=== PATIENT | male | born 1985 | race Caucasian/White ===

== ENCOUNTER 2018-09-19 18:43 | Emergency (ER) | payer BC ==
[2018-09-19] MEDS ORDERED: HYDROmorphONE/DILAUDID 1 MG/ML INJ IVP ONE (19:20)
[2018-09-19] MEDS ORDERED: ONDANSETRON 4 MG/2 ML VIAL IVP ONE (19:20)
--- NOTE | 2018-09-19 19:20 | EDPHY ---
H & P Stated Complaint: Left chest versus tree skiing. Time Seen by Provider: 09/19/18 19:05 HPI/ROS: CHIEF COMPLAINT: Left-sided torso pain, snowboarding injury HISTORY OF PRESENT ILLNESS: 33-year-old male via private vehicle was snowboarding, regular stance, left side of body impacted a tree at relatively high speed. He is complaining of left-sided chest and abdominal pain as well as dyspnea. No head injury. No neck pain injury. No straddle or genital injury. No head injury. No midline C-spine pain. No peripheral paresthesia, weakness, numbness. No lower extremity injury. REVIEW OF SYSTEMS: 10 systems reviewed and negative with the exception of the elements mentioned in the history of present illness PAST MEDICAL/SURGICAL HISTORY: no anticoagulant use, no relevant medical/ surgical history SOCIAL HISTORY: denies alcohol use at time of incident PHYSICAL EXAM 1) GENERAL: Well-developed, well-nourished, alert and oriented. Appears uncomfortable Answering questions appropriately. 2) HEAD: Normocephalic, atraumatic 3) HEENT: Pupils equal, round, reactive to light bilaterally. Negative Horners. Nasopharynx, oropharynx, clear. No deformity or angulation of nose. No septal hematoma. No rhinorrhea. No oral trauma. Ears bilaterally with normal tympanic membranes. No hemotympanum. No fluid or blood in the external auditory canal. No raccoon eyes. No Trent sign. Teeth are normally aligned with no gross malocclusion, TMJ bilaterally nontender, facial bones nontender including the zygomatic arch, maxilla mandible. 4) NECK: No cervical collar is on. Posterior cervical spine is nontender, no stepoff, no effusion. Full range of motion which does not elicit any midline cervical spine pain, no posterior midline tenderness, no step-off. 5) LUNGS: Clear to auscultation bilaterally, no wheezes, no rhonchi, no retractions. No obvious signs of trauma. No chest wall pain. No flaring, no grunting. Moving symmetrically. No crepitus. 6) HEART: Regular rate and rhythm, 7) ABDOMEN: No guarding, no rebound, no focal tenderness, no peritoneal signs, no signs of trauma, no ecchymosis 8) MUSCULOSKELETAL: Moving all extremities, no focal areas of tenderness, no obvious trauma. 9) BACK:.No midline vertebral tenderness, no fluctuance, no step-off, no obvious trauma, no visual or palpable abnormality. 10) SKIN: No laceration. No abrasion DIFFERENTIAL DIAGNOSIS: In no particular order include but limited to splenic fracture, rib fracture, flail chest, pneumothorax, hemothorax - Personal History Current Tetanus/Diphtheria Vaccine: Unsure Current Tetanus Diphtheria and Acellular Pertussis (TDAP): Unsure - Medical/Surgical History Hx Asthma: No Hx Chronic Respiratory Disease: No Hx Diabetes: No Hx Cardiac Disease: No Hx Renal Disease: No Hx Cirrhosis: No Hx Alcoholism: No Hx HIV/AIDS: No Hx Splenectomy or Spleen Trauma: No Other PMH: high cholesterol, marijuana user. - Social History Smoking Status: Never smoked Constitutional: Initial Vital Signs Temperature (C) 36.8 C 09/19/18 18:52 Heart Rate 85 09/19/18 18:52 Respiratory Rate 18 09/19/18 18:52 Blood Pressure 142/100 H 09/19/18 18:52 O2 Sat (%) 95 09/19/18 18:52 O2 Delivery Mode Room Air Allergies/Adverse Reactions: No Known Allergies Allergy (Unverified 09/19/18 18:54) Home Medications: Medication Instructions Recorded Atorvastatin Calcium 09/19/18 oxyCODONE/APAP 5/325 [Percocet 1 tab PO Q6 #10 tab 09/19/18 5/325] Medical Decision Making - Diagnostics Imaging Results: Imaging Impressions Chest X-Ray 09/19/18 19:00 Impression: 1. Nondisplaced fractures lateral left seventh and eighth ribs as well as posterior left eighth rib. Chest CT 09/19/18 19:35 Impression: 1. Nondisplaced fractures lateral left seventh and eighth ribs and posterior left eighth rib. 2. Focal bleb right apex anteromedially. 3. No evidence of pulmonary parenchymal contusion or pneumothorax in the left. Findings discussed with Dr. Wilson at 20:25 hour, 09/19/2018. Abdomen CT 09/19/18 19:36 Impression: 1. Normal CT abdomen and pelvis with contrast enhancement. 2. No acute fractures seen associated with the abdomen and pelvis. No evidence of organ injury. Findings discussed with Dr. Wilson at 20:25 hour, 09/19/2018. Images reviewed myself ED Course/Re-evaluation: 7:18 p.m.: I have evaluated this patient. He is in quite a bit of discomfort. He impacted a tree while snowboarding at high rate of speed with his left side. I am concerned about possible splenic injury. I will place IV, check CT imaging of the chest abdomen pelvis. No head injury. No genitalia injury. Chest x-ray shows no obvious pneumothorax or hemothorax at this time. 9:06 p.m.: Re-evaluation. Patient resting comfortably, calm. I have offered admission which he declines. He would like to be discharged home as his pain is controlled.. I reviewed the imaging results, specifically the apical bleb with on-call trauma surgeon Dr. Nigel Hartman reviewed the images in the ER. Patient is maintain normal saturations this controlled pain. Dr. Nigel Hartman recommended no further intervention a patient could be discharged home. I spoke with patient at length and informed him that if he develops dyspnea or worsening pain needs to seek immediate medical attention. He feels comfortable with this plan. Given incentive spirometer at discharge. Care of patient under supervision of secondary supervising physician Dr Wilson with whom I discussed case. - Data Points Laboratory Results: 09/19/18 19:33 POC Hgb 16.3 gm/dL gm/dL (13.7-17.5) POC Hct 48 % % (40-51) POC Sodium 143 mEq/L mEq/L (135-145) POC Potassium 4.0 mEq/L mEq/L (3.3-5.0) POC Chloride 106 mEq/L mEq/L (97-110) POC BUN 14 mg/dL mg/dL (7-23) POC Creatinine 0.9 mg/dL mg/dL (0.7-1.3) POC Glucose 93 mg/dL mg/dL (70-100) Medications Given: Discontinued Medications Hydromorphone HCl (Dilaudid) 1 mg IVP EDNOW ONE Stop: 09/19/18 19:21 Last Admin: 09/19/18 19:30 Dose: 1 mg Ondansetron HCl (Zofran) 4 mg IVP EDNOW ONE Stop: 09/19/18 19:21 Last Admin: 09/19/18 19:30 Dose: 4 mg Oxycodone/Acetaminophen (Percocet 5/325mg Prepack#4) 1 btl AMAURY GOMEZNOW ONE Stop: 09/19/18 21:10 Last Admin: 09/19/18 21:31 Dose: 1 btl Point of Care Test Results: Chemistry 09/19/18 19:33 POC Sodium 143 mEq/L mEq/L (135-145) POC Potassium 4.0 mEq/L mEq/L (3.3-5.0) POC Chloride 106 mEq/L mEq/L (97-110) POC BUN 14 mg/dL mg/dL (7-23) POC Creatinine 0.9 mg/dL mg/dL (0.7-1.3) POC Glucose 93 mg/dL mg/dL (70-100) ISTAT H&H 09/19/18 19:33 POC Hgb 16.3 gm/dL gm/dL (13.7-17.5) POC Hct 48 % % (40-51) Departure - Departure Disposition: Home, Routine, Self-Care Clinical Impression: Snowboarding accident Qualifiers: Encounter type: initial encounter Qualified Code(s): V00.318A - Other snowboard accident, initial encounter Rib fracture Qualifiers: Encounter type: initial encounter Rib fracture type: multiple ribs Fracture type: closed Laterality: left Qualified Code(s): S22.42XA - Multiple fractures of ribs, left side, initial encounter for closed fracture Condition: Good Instructions: Oxycodone/Acetaminophen (By mouth), Rib Fracture (ED) Additional Instructions: Seek immediate medical attention if you develop worsening pain or shortness of breath. Use your incentive spirometer as directed. Referrals: Nigel Hartman MD [Medical Doctor] - 5-7 days, call for appt. Prescriptions: oxyCODONE/APAP 5/325 [Percocet 5/325] 1 tab PO Q6 #10 tab
[2018-09-19 19:34] VITALS: BP 151/99
[2018-09-19] MEDS ORDERED: IOPAMIDOL (ISOVUE 370) 100 ML BTL IV ONE (19:41)
[2018-09-19] MEDS ORDERED: OXYCODONE/APAP 5/325MG PREPACK#4 BTL TAKEHOME ONE (21:09)
== END 2018-09-19 21:30 | disposition home or self-care (01) ==
DX: S22.42XA Multiple fractures of ribs, left side, initial encounter for closed fracture (principal); E78.00 Pure hypercholesterolemia, unspecified; V00.312A Snowboarder colliding with stationary object, initial encounter; Y93.23 Activity, snow (alpine) (downhill) skiing, snowboarding, sledding, tobogganing and snow tubing; Y92.828 Other wilderness area as the place of occurrence of the external cause
CPT/HCPCS: 82435-PO; 82565-PO; 82947-PO; 84132-PO; 84295-PO; 84520-PO; 85014-ER; 96374; J1170; J2405; Q9967